=== PATIENT | female | born 1945 | race Caucasian/White ===

== ENCOUNTER 2022-07-28 19:17 | Observation (INO) | payer MEDICARE, OTHER ==
[2022-07-28 20:15] LABS: Basophils % (A) 1 %; Eosinophils # (A) 0.1 k/uL (0-0.7); Eosinophils % (A) 2 %; HCT 39.3 % (34.0-46.0); HGB 14.3 gm/dL (11.4-16.0); Lymphocytes # (A) 1.6 k/uL (1.0-4.8); Lymphocytes % (A) 24 %; MCH 29.9 pg (25.0-35.0); MCHC 36.3 g/dL (31.0-37.0); MCV 82.3 fL (80.0-100.0); Mean Platelet Volume 8.4; Monocytes # (A) 0.4 k/uL (0-1.0); Monocytes % (A) 6 %; Neutrophils # (A) 4.1 k/uL (1.3-7.7); Neutrophils % (A) 65 %; Platelet Count 215 k/uL (150-450); RBC 4.78 m/uL (3.80-5.40); RDW 12.4 % (11.5-15.5); WBC 6.4 k/uL (3.8-10.6)
[2022-07-28 20:26] LABS: INR 0.9 (<1.2); Partial Thromboplastin Time 27.8 sec (22.0-30.0)
[2022-07-28 20:28] LABS: ALT 17 U/L (4-34); AST 20 U/L (14-36); African American GFR (CKD) >90 (>60 ml/min/1.73 sqM); Albumin 4.7 g/dL (3.5-5.0); Alkaline Phosphatase 84 U/L (38-126); Anion Gap 8 mmol/L; Blood Urea Nitrogen 18 mg/dL (7-17); Calcium 10.3 mg/dL (8.4-10.2); Carbon Dioxide 26 mmol/L (22-30); Chloride 104 mmol/L (98-107); Glucose 110 mg/dL (74-99); Magnesium 1.9 mg/dL (1.6-2.3); Non-African American GFR(CKD) 85 (>60 ml/min/1.73 sqM); Sodium 138 mmol/L (137-145); Total Bilirubin 1.2 mg/dL (0.2-1.3); Total Protein 7.3 g/dL (6.3-8.2)
--- NOTE | 2022-07-28 20:29 | XR ---
EXAMINATION TYPE: XR chest 2V DATE OF EXAM: 07/28/2022 8:09 PM COMPARISON: None TECHNIQUE: XR chest 2V Frontal and lateral views of the chest. CLINICAL INDICATION:Female, 76 years old with history of Chest Pain; FINDINGS: Lungs/Pleura: There is no evidence of pleural effusion, focal consolidation, or pneumothorax. Pulmonary vascularity: Unremarkable. Heart/mediastinum: Cardiomediastinal silhouette is unremarkable. Musculoskeletal: No acute osseous pathology. IMPRESSION: No acute cardiopulmonary disease/process.
[2022-07-28] MEDS ORDERED: ASPIRIN 81 MG PO STA (23:35)
[2022-07-28] MEDS ORDERED: NITROGLYCERIN OINT 1 INCH/GM PACKET TOPICAL STA (23:36)
--- NOTE | 2022-07-28 23:41 | ED ---
Chest Pain HPI - General Chief Complaint: Chest Pain Stated Complaint: chest pain Time Seen by Provider: 07/28/22 23:27 Source: patient, RN notes reviewed Mode of arrival: ambulatory Limitations: no limitations - History of Present Illness Initial Comments: This is a pleasant 76-year-old female who presents to emergency department stating that she has had uncontrolled hypertension for the past week or so. Patient then developed chest pain today. Patient is having a hard time describing the pain but states it was in the center of her chest. Patient had been walking up and down stairs prior to the onset of pain. Patient is also had ongoing fatigue. She had a cardiac stress test in [place] over one year ago which was apparently nondiagnostic. No headache, no fever or chills, no changes in vision or hearing, no sore throat or difficulty with speech, no neck pain, no shortness of breath, no abdominal pain, no nausea or vomiting, no changes in urination or bowel movements, no numbness or tingling, no extremity pain, no skin rashes or lesions. Past medical, surgical, social, and family history reviewed. - Related Data Allergies Allergy/AdvReac Type Severity Reaction Status Date / Time No Known Allergies Allergy Verified 07/28/22 19:29 Review of Systems ROS Statement: Those systems with pertinent positive or pertinent negative responses have been documented in the HPI. ROS Other: All systems not noted in ROS Statement are negative. EKG Findings - EKG Comments: EKG Findings:: EKG done at 1951 interpreted by me reveals sinus rhythm with a rate of 74, normal axis, no acute ST or T-wave changes, normal QS morphology, normal intervals. Past Medical History Past Medical History: No Reported History History of Any Multi-Drug Resistant Organisms: None Reported Past Surgical History: Appendectomy, Orthopedic Surgery Additional Past Surgical History / Comment(s): cataracts Past Psychological History: No Psychological Hx Reported Smoking Status: Never smoker Past Alcohol Use History: Occasional Past Drug Use History: None Reported General Exam Limitations: no limitations General appearance: alert, in no apparent distress Head exam: Present: atraumatic, normocephalic, normal inspection Eye exam: Present: normal appearance, PERRL, EOMI. Absent: scleral icterus, conjunctival injection, periorbital swelling ENT exam: Present: normal exam, normal oropharynx, mucous membranes dry, mucous membranes moist, normal external ear exam Neck exam: Present: normal inspection, full ROM. Absent: tenderness, meningismus, lymphadenopathy Respiratory exam: Present: normal lung sounds bilaterally. Absent: respiratory distress, wheezes, rales, rhonchi, stridor Cardiovascular Exam: Present: regular rate, normal rhythm, normal heart sounds. Absent: systolic murmur, diastolic murmur, rubs, gallop, clicks GI/Abdominal exam: Present: soft, normal bowel sounds. Absent: distended, tenderness, guarding, rebound, rigid Extremities exam: Present: normal inspection, full ROM, normal capillary refill. Absent: tenderness, pedal edema, joint swelling, calf tenderness Back exam: Present: normal inspection Neurological exam: Present: alert, oriented X3, CN II-XII intact Psychiatric exam: Present: normal affect, normal mood Skin exam: Present: warm, dry, intact, normal color. Absent: rash, cyanosis, diaphoretic, erythema, urticaria, vesicles, petechiae, pallor, mottled, abrasion Course Vital Signs 07/28/22 19:22 Temperature 96.4 F L Pulse Rate 85 Respiratory 16 Rate Blood Pressure 179/80 O2 Sat by Pulse 98 Oximetry - Reevaluation(s) Reevaluation #1: 07/29/22 00:02 Medical record is reviewed Symptoms are improved here in the emergency department Patient is informed of results and questions answered Patient in no distress - Consultations Consultation #1: Case discussed in detail with the hospitalist physician from [facility]. Patient admitted to that service. Chest Pain MDM - MDM Patient with exertional chest pain. We'll give the patient aspirin, add nitroglycerin paste, patient really no distress at this time. States she has a funny feeling in her chest but the pain has lightened up. We'll admit for further evaluation and treatment. Does not appear to be consistent with pulmonary embolus. Does not appear to be consistent with infectious process. Chest x-ray interpreted by me reveals no evidence of acute pathology. Concur with radiology interpretation. The case was discussed in detail with ED attending physician. Presentation, findings, treatment plan discussed in detail. Senior Air Director Dr. Walker Disposition Clinical Impression: Chest pain, Uncontrolled hypertension, Fatigue, Exertional chest pain Disposition: ADMITTED IP TO THIS [facility] Condition: Fair Referrals: Krzysztof Wesley MD [Primary Care Provider] - 1-2 days Time of Disposition: 23:37
[2022-07-29] MEDS ORDERED: NALOXONE 0.4 MG/ML 1 ML VIAL IV PRN
[2022-07-29] MEDS ORDERED: ACETAMINOPHEN TAB 325 MG TAB PO PRN
--- NOTE | 2022-07-29 04:18 | P.HPIM ---
History of Present Illness H&P Date: 07/29/22 Chief Complaint: chest pain 76 year old female with hypertension patient comes in due to recurrent episodes of chest pain , initially started with moderate physical activity like climbing stairs, she would feel chest pressure across her chest with heavy breathing that goes away with resting. then today she experienced sharp chest pain 4/10 in severity while doing light house chores, was not associated with any SOB, nausea , vomiting, profuse sweating, palpitation , or dizziness. patient does report feeling unusually tired recently with easy fatiguability which she believes unusual for her. she had a stress test done about 1.5 year ago and was unremarkable denies any recent viral illness, denies any URI symptoms, denies any recent travel or hospital stay workup in the ED unremarkable Review of Systems Pertinent positives as noted in HPI. All other systems were reviewed and are negative Past Medical History Past Medical History: No Reported History History of Any Multi-Drug Resistant Organisms: None Reported Past Surgical History: Appendectomy, Orthopedic Surgery Additional Past Surgical History / Comment(s): cataracts Past Psychological History: No Psychological Hx Reported Smoking Status: Never smoker Past Alcohol Use History: Occasional Past Drug Use History: None Reported - Past Family History family Additional Family Medical History / Comment(s): no reported CAD Medications and Allergies Allergies Allergy/AdvReac Type Severity Reaction Status Date / Time No Known Allergies Allergy Verified 07/28/22 19:29 Physical Exam Vitals: Vital Signs Temp Pulse Resp BP Pulse Ox 07/28/22 19:22 96.4 F L 85 16 179/80 98 Intake and Output 07/28/22 07/28/22 07/29/22 14:59 22:59 06:59 Other: Weight 69.4 kg Constitutional: No acute distress, conversant, pleasant Eyes: Anicteric sclerae, moist conjunctiva, Pupils equal round reactive to light ENMT: NC/AT Oropharynx clear, no erythema, or exudates Neck: Supple, no masses, or JVD No carotid bruits No thyromegaly Lungs: Clear to auscultation Clear to percussion Normal respiratory effort, no accessory muscle use Cardiovascular: Heart regular in rate and rhythm, No murmurs, gallops, or rubs No peripheral edema Abdominal: Soft Nontender, no guarding, rebound or rigidity Abdomen moving with respiration Normoactive bowel sounds No hepatomegaly, No splenomegaly No palpable mass No abdominal wall hernia noted Skin: Normal temperature, tone, texture, turgor No induration No subcutaneous nodules No rash, lesions No ulcers Extremities: No digital cyanosis No clubbing Pedal pulses intact and symmetrical Radial pulses intact and symmetrical No calf tenderness Psychiatric: Alert and oriented to person, place and time Appropriate affect fair judgement Neuro Muscles Strength 5/5 in all 4 extremities Sensation to light touch grossly present throughout Cranial nerves II-XII grossly intact No focal sensory deficits Lymphatics: no palpable cervical or supraclavicular lymph nodes Results CBC & Chem 7: 07/28/22 20:00 07/28/22 20:00 Labs: Abnormal Lab Results - Last 24 Hours (Table) 07/28/22 Range/Units 20:00 BUN 18 H (7-17) mg/dL Glucose 110 H (74-99) mg/dL Calcium 10.3 H (8.4-10.2) mg/dL Assessment and Plan Assessment: atypical chest pain rule out ACS EKG no acute changes CXR no acute pathology trops negative X2 quality assurance monitor final monitor vital signs ASA, statin cardiology consult A1c, lipid panel , TSH pain control uncontrolled hypertension initiate on amlodipine 5 mg daily full code heparin sc tid for DVT PPX
[2022-07-29] MEDS: ASPIRIN 81 MG PO SCH (08:32)
[2022-07-29] MEDS ORDERED: amLODIPine 5 MG TAB PO SCH ×2 (09:00→09:01)
[2022-07-29] MEDS ORDERED: HEPARIN SODIUM,PORCINE/PF 5,000 UNIT/0.5 ML SYRINGE SQ SCH (09:00)
[2022-07-29] MEDS ORDERED: ENOXAPARIN 80 MG/0.8 ML SYRINGE SQ STA (09:02)
[2022-07-29 10:20] LABS: Chol/HDL Ratio 4.69 Ratio; LDL Cholesterol,Calculated 112.8 mg/dL (0.0-131.0)
[2022-07-29] MEDS: ATORVASTATIN 20 MG TAB PO SCH (11:31)
[2022-07-29] MEDS: METOPROLOL TARTRATE 12.5 MG TAB PO SCH ×2 (11:31→20:53)
--- NOTE | 2022-07-29 12:10 | CONS ---
CONSULTATION HISTORY OF PRESENT ILLNESS: This is a 76-year-old lady, who sees Dr. Wesley in the outpatient setting in [place]. She has been doing fairly well and does not take any regular prescription medications. She apparently usually has a physical exam in June, but she did not see her doctor as scheduled, and then about a week ago, she went to see her primary care physician and was found to have a systolic pressure of 170 and a diastolic of 90 or so. She also had some nondescript symptoms, which she describes as a constant feeling of pressure on the chest that has lasted almost about a week or so. About a year ago, she had a stress test in [place]. Apparently, that was unremarkable. The discomfort in the chest that she is describing is a constant feeling of pressure that has been there almost for a week. However, yesterday, she had a more of a sharp pain, and she came into the hospital. EKG is unremarkable. Troponins are normal. Her blood pressure is, however, elevated. She is resting comfortably without symptoms. Quality of pain is atypical, but persistent, and she had apparently a negative or a nondiagnostic stress test that was performed about a year ago in [place], details are unavailable. She is asymptomatic, resting comfortably. PAST MEDICAL HISTORY: No evidence of any hypertension or diabetes. She does not take any prescription medications. Recent diagnosis of hypertension about a week ago by PCP. She is status post appendectomy and some orthopedic surgery. SOCIAL HISTORY: The patient is not a smoker. PHYSICAL EXAMINATION: VITAL SIGNS: On examination, blood pressure is 160/70. Pulse rate is about 84 per minute, regular. HEENT: Unremarkable. Fundus was not examined by me. NECK: Supple. No JVD. I do not hear a carotid bruit. HEART: Reveals S1 and S2 heard normally. No significant rub, murmur, or gallop. LUNGS: Clear. ABDOMEN: Soft and nontender. EXTREMITIES: Lower extremities reveal normal pulses. No edema. CENTRAL NERVOUS SYSTEM: Normal. IMAGING STUDIES: EKG revealed sinus mechanism, no acute changes. LABORATORY DATA: Reveal no significant abnormalities. Three sets of troponins are normal. IMPRESSION: 1. Recent diagnosis of elevated blood pressure. 2. Atypical chest pain. 3. Probably an unremarkable stress test a year ago. RECOMMENDATIONS: I am recommending that we will optimize BP control first with addition of a small dose of beta-lex and continue amlodipine 5 mg b.i.d., and we will add Lipitor 20 mg daily. Lipid profile is still pending. We will increase activity. In view of her nondescript symptoms of chest pain, I will also give her Lovenox 70 mg subcutaneously q.12 hours 2 doses. If she has no further chest pain and she is comfortable and ambulatory and BP control has been optimized, we will perform a stress echo tomorrow. However, if she has any symptoms of chest discomfort, I will consider cardiac catheterization. I discussed this with the patient. I explained her the rationale, risks, benefits and options. Based on clinical course, we will make further recommendation, but first, we will optimize BP control. Thank you very much for the consult. JACK / THERESA: [id number] /
--- NOTE | 2022-07-29 17:59 | P.PN ---
Subjective Progress Note Date: 07/29/22 Hospital course: Patient is a very pleasant 76-year-old female with no reported past medical history. She presents to the emergency department with a chief complaint of chest pain. She reports that she's had mild chest pressure off and on over the past week and has noticed that she has had elevated blood pressures. She denies having a history of hypertension and states that she follows with her primary care doctor every year and also follows her blood pressure at home. Patient states this chest pain was different and was described as more of a painful sensation that her pressure and upon taking her blood pressure she noted it to b e very high. Upon arrival to the emergency department patient underwent full evaluation. Upon initial evaluation she was found to be hypertensive with blood pressure 179/80 heart rate of 85. CBC, coags, and CMP were unremarkable. Patient had mild hypercalcemia with calcium of 10.3. Troponin was negative at less than 0.012. EKG showing sinus rhythm at 74 bpm with no noted T-wave or ST abnormalities showing no signs of acute ischemia. Chest x-ray negative for acute cardiopulmonary process. Patient was admitted under services with consultation to cardiology. Troponins were trended all negative at less than 0.0123 draws. Lipid profile unremarkable with the exception of low HDL of 38.2 0. Physical exam: Patient seen and fully evaluated at bedside this morning. Currently patient reports complete resolution of previously reported chest pain/discomfort. She has been started on amlodipine 5 mg twice daily as well as metoprolol 12.5 mg twice daily. Blood pressures much improved this morning with blood pressure 128/78 and heart rate of 66. Vital signs reviewed and stable. General: Nontoxic, no distress and appears stated age. Derm: Skin warm and dry, normal coloration for ethnicity. Head: Atraumatic, normocephalic and symmetric. Eyes: EOMs intact, no lid lag, and anicteric sclera Mouth: no lip lesions, mucus membranes moist Cardiovascular: regular rate and rhythm with normal S1S2, no murmur, positive po sterior tibial pulses bilaterally, and cap refill < 2 seconds. Lungs: Respirations even, regular, and unlabored on room air. Lungs CTA bilaterally, no rhonchi, no rales, no wheezing, and no accessory muscle usage. Abdominal: soft, nontender to palpation, no guarding, no appreciable organomegaly Ext: ROM intact. No gross muscle atrophy, no edema, no contractures Neuro: Speech clear, face symmetrical and CN II-XII grossly intact with no noted focal neuro deficits Psych: Alert and oriented to person, place, time, and situation. Appropriate and pleasant affect. Assessment and Plan of Care: Uncontrolled hypertension Chest pain, rule out acute coronary event -Cardiology following, planning to take patient for stress test tomorrow morning -Telemetry monitoring -Troponins negative -Cardiac diet -Aspirin, atorvastatin, and metoprolol -Lipid profile with a.m. labs. -Echocardiogram CODE STATUS: Full code DVT prophylaxis: Lovenox Discussed with: Patient, patient's sons at bedside and patient's Anticipated discharge date: 1-[address]: Home A total of 35 minutes was spent on the care of this complex patient more than 50% of the time was spent in counseling and care coordination. I reviewed the documentation as provided by the YUKO above, who is the original author of this note. I agree with the documented assessment and plan, with the following changes: none Objective - Vital Signs Vital signs: Vital Signs Temp 96.4 F L 07/28/22 19:22 Pulse 69 07/29/22 00:47 Resp 16 07/29/22 00:47 BP 165/91 07/29/22 00:47 Pulse Ox 97 07/29/22 00:47 FiO2 Intake & Output 07/28/22 07/29/22 07/29/22 18:59 06:59 18:59 Weight 69.4 kg - Labs CBC & Chem 7: 07/30/22 04:40 07/30/22 04:40 Labs: Abnormal Lab Results - Last 24 Hours (Table) 07/28/22 Range/Units 20:00 BUN 18 H (7-17) mg/dL Glucose 110 H (74-99) mg/dL Calcium 10.3 H (8.4-10.2) mg/dL
[2022-07-29] MEDS: amLODIPine 5 MG TAB PO SCH (20:53)
[2022-07-30 08:27] VITALS: BP 120/72; PULSE 71; RESP 16; TEMP 98
[2022-07-30] MEDS ORDERED: ENOXAPARIN 40 MG/0.4 ML SYRINGE SQ SCH (09:00)
--- NOTE | 2022-07-30 09:03 | CA ---
Transthoracic Echo Report Name: Briana Beasley Age: 76 Gender: F : 1945 Exam Date: 07/29/2022 13:36 Exam Location: [facility] Ht (in): 64 Wt (lb): 153 Ordering Physician: Ashley Crawley Attending/Referring Phys: Document Imaging Specialist Evy Escobar RDCS Procedure CPT: Indications: Chest Pain Cardiac Hx: Technical Quality: Good Contrast 1: Total Dose (mL): Contrast 2: Total Dose (mL): MEASUREMENTS (Male / Female) Normal Values 2D ECHO LV Diastolic Diameter PLAX 4.3 cm 4.2 - 5.9 / 3.9 - 5.3 cm LV Systolic Diameter PLAX 2.8 cm IVS Diastolic Thickness 1.0 cm 0.6 - 1.0 / 0.6 - 0.9 cm LVPW Diastolic Thickness 1.0 cm 0.6 - 1.0 / 0.6 - 0.9 cm LV Relative Wall Thickness 0.5 RV Internal Dim ED PLAX 3.0 cm LA Systolic Diameter LX 3.3 cm 3.0 - 4.0 / 2.7 - 3.8 cm LA Volume 48.8 cm??? 18 - 58 / 22 - 52 cm??? M-MODE Aortic Root Diameter MM 3.0 cm MV E Point Septal Separation 0.5 cm AV Cusp Separation MM 1.8 cm DOPPLER AV Peak Velocity 176.2 cm/s AV Peak Gradient 12.4 mmHg MV Area PHT 3.0 cm??? Mitral E Point Velocity 83.3 cm/s Mitral A Point Velocity 113.2 cm/s Mitral E to A Ratio 0.7 MV Deceleration Time 252.6 ms MV E' Velocity 7.9 cm/s Mitral E to MV E' Ratio 10.6 TR Peak Velocity 246.1 cm/s TR Peak Gradient 24.2 mmHg Right Ventricular Systolic Press 28.4 mmHg FINDINGS Left Ventricle Left ventricular ejection fraction is estimated at 55-60 %. Left ventricular cavity size normal. Left ventricular wall thickness normal. Right Ventricle Normal right ventricular size. Mild pulmonary hypertension. Right Atrium Normal right atrial size. Left Atrium Normal left atrial size. No evidence for an atrial septal defect. Mitral Valve Structurally normal mitral valve. No mitral stenosis, regurgitation or prolapse. Aortic Valve Trileaflet aortic valve. No aortic valve stenosis or regurgitation. Tricuspid Valve Structurally normal tricuspid valve. Mild tricuspid regurgitation. Pulmonic Valve Trace pulmonic regurgitation. Pericardium Normal pericardium. No pericardial effusion. Aorta Normal size aortic root and proximal ascending aorta. CONCLUSIONS Normal LV size and systolic function. No significant abnormality in the Doppler exam. No pericardial effusion Previewed by: Dr. Mei Mensah MD (Electronically Signed) Final Date: 30 July 2022 09:02
[2022-07-30 09:25] LABS: Basophils # (A) 0.07 X 10*3/uL (0.00-0.10); Basophils % (A) 1.2 %; Eosinophils # (A) 0.14 X 10*3/uL (0.04-0.35); Eosinophils % (A) 2.4 %; HCT 39.2 % (37.2-46.3); HGB 13.1 g/dL (12.0-15.0); Immature Grans, Automated 0.5 %; Lymphocytes # (A) 1.46 X 10*3/uL (0.90-5.00); Lymphocytes % (A) 25.2 %; MCH 28.8 pg (27.0-32.0); MCHC 33.4 g/dL (32.0-37.0); MCV 86.2 fL (80.0-97.0); Monocytes # (A) 0.52 X 10*3/uL (0.20-1.00); NRBC Per 100 WBC 0 /100 WBCS (0.0-0.0); Neutrophils # (A) 3.58 X 10*3/uL (1.80-7.70); Neutrophils % (A) 61.7 %; Platelet Count 226 X 10*3/uL (140-440); RBC 4.55 X 10*6/uL (4.10-5.20); RDW 12.2 % (11.5-14.5)
--- NOTE | 2022-07-30 09:40 | P.PN ---
Subjective This is a 76-year-old female with past medical history of family history of coronary artery disease. She does not follow with a stockholder. Patient presented emergency department with complaints of chest pain. She initially went to her primary care provider and her blood pressure was elevated with SBP in the 170s. She was not started on blood pressure medications at that time. She states that she did wear a heart monitor for about one week. She described her chest pain as chest heaviness, nonradiating, nonexertional. She states it is intermittent and would come and go. She is a nonsmoker. Denies any prior history of CAD, VA, stroke, diabetes, dyslipidemia, hypertension. She does have a significant family history of CAD, mother had VA late 70s, brother VA at age 60 , grandmother had an VA. Her BP was elevated on admission, Acute coronary syndrome was ruled out. BP was managed. 07/30/2022 Patient seen and examined at bedside, no acute distress. She denies any further chest pain. She denies shortness of breath. Acute coronary syndrome has ruled out. Plan for a stress echocardiogram today. Blood pressure improved 120/72, heart rate 71, afebrile, saturations 98% on room air Echocardiogram revealed an EF of 5560%, no significant valvular wall motion abnormality. No pericardial effusion. GENERAL: Well-appearing, well-nourished and in no acute distress. NECK: Supple without JVD LUNGS: Breath sounds clear to auscultation bilaterally. Respiration equal and unlabored. No wheezes, rales or rhonchi. HEART: Regular rate and rhythm without murmurs, rubs or gallops. S1 and S2 heard. EXTREMITIES: Normal range of motion, no edema. No clubbing or cyanosis. Peripheral pulses intact. ASSESSMENT Chest pain, acute coronary syndrome has ruled out Hypertension Family history of coronary disease PLAN Plan for stress echocardiogram test today. If stress test with no stress induced ischemia, no further inpatient workup from cardiology perspective. Continue amlodipine 5 mg twice a day, statin, metoprolol tartrate. Hold AM dose of metoprolol for stress test Follow up outpatient with her PCP and Dr. Mensah in 2-3 weeks Nurse Practitioner note has been reviewed, I agree with a documented findings and plan of care. Patient was seen and examined. Objective - Vital Signs Vital signs: Vital Signs Temp 98.0 F 07/30/22 07:00 Pulse 71 07/30/22 07:00 Resp 16 07/30/22 07:00 BP 120/72 07/30/22 07:00 Pulse Ox 98 07/30/22 07:00 FiO2 Intake & Output 07/29/22 07/30/22 07/30/22 18:59 06:59 18:59 Weight 69.4 kg Other: # Voids 2 2 - Labs CBC & Chem 7: 07/30/22 04:40 07/28/22 20:00 Labs: Abnormal Lab Results - Last 24 Hours (Table) 07/29/22 Range/Units 06:21 HDL Cholesterol 38.20 L (40.00-60.00) mg/dL
[2022-07-30 09:54] LABS: African American GFR (CKD) 82.4 (60.0-200.0); Anion Gap 9.4 mmol/L (10.00-18.00); BUN/Creat Ratio 20.63 Ratio (12.00-20.00); Blood Urea Nitrogen 16.5 mg/dL (9.0-27.0); Calcium 10.5 mg/dL (8.7-10.3); Carbon Dioxide 27.6 mmol/L (20.0-27.5); Non-African American GFR(CKD) 71.1 (60.0-200.0); Potassium 4.6 mmol/L (3.5-5.5)
--- NOTE | 2022-07-30 11:02 | CA ---
Stress Echo Report Briana Beasley Age: 76 Gender: F : 1945 Exam Date: 07/30/2022 10:11 Exam Location: [place] [facility] Ht (in): 64 Wt (lb): 153 Ordering Physician: Ashley Crawley Referring Physician: ZACHARY,, Line Repairer: Trevor Herrera Technologist Procedure CPT: Indication: Chest Pain ICD-9 Codes: Rhythm: Patient History: Cardiac Medications: Medications in past 24 hours: Contrast: Stress Results Protocol: Jonathon Total dose(mL): Exercise Duration (min:sec): 3:[address] Depression (mm): Angina Score: Cho Score: METS: 5.2 Resting HR: 75 Resting BP: 143 / 81 Peak HR: 139 Peak BP: 195 / 86 Max Predicted HR: 143 97 % Max Predicted HR Target HR: 122 Double Product: 68027 Stress Summary: BP Response: Reason for Termination: Reached target heart rate or work-load Cardiac Symptoms: SHORT OF BREATH ECG Analysis Resting ECG: Stress ECG: Arrhythmia: Echo Analysis Resting Echo: Peak Echo Analysis: MEASUREMENTS (Male/Female) Normal Values CONCLUSIONS Baseline EKG revealed normal sinus rhythm without significant ST-T changes. Patient walked on a standard Jonathon protocol for 3 minutes 32 seconds and achieved a maximum heart rate of about 136-1 40 bpm. This is available 85% of predicted maximal. Peak blood pressure was 194/86. Patient did not have any angina but she developed shortness of breath. There was no evidence of any significant arrhythmia. This is a negative stress test by EKG criteria with somewhat limited exercise capacity Baseline echo images revealed normal wall motion wall thickening of all segments. At peak exercise there was good augmentation of left ventricular wall motion wall thickening of all segments suggesting that there is no evidence of any stress-induced ischemia on the stress echocardiogram Limited x-rays capacity is a negative stress has been EKG criteria and normal stress echocardiogram without evidence of ischemia Dr. Mei Mensah MD (Electronically Signed) Final Date: 30 July 2022 11:01
[2022-07-30] MEDS: ATORVASTATIN 20 MG TAB PO SCH (11:26)
[2022-07-30] MEDS: ASPIRIN 81 MG PO SCH (11:26)
[2022-07-30] MEDS: amLODIPine 5 MG TAB PO SCH (11:26)
[2022-07-30] MEDS: METOPROLOL TARTRATE 12.5 MG TAB PO SCH (11:26)
--- NOTE | 2022-07-30 12:40 | P.DS ---
Providers Date of admission: 07/29/22 00:02 Expected date of discharge: 07/30/22 Attending physician: Silvia Davis MD Consults: 07/29/22 00:00 Consult Physician Urgent Consulting Provider: Lisandra Macdonald Consult Reason/Comments: chest pain Do you want consulting provider notified?: Yes, Notify in am Primary care physician: Krzysztof Castro [facility] Course: Discharge Diagnosis: Uncontrolled hypertension, patient started on amlodipine 5 mg twice daily and metoprolol 12.5 mg twice daily resulting in optimization of blood pressures with blood pressure 120/72 and heart rate 71 upon discharge. Patient instructed to continue to monitor blood pressures at home and document these findings and a daily log/journal to bring with her to the next doctor's appointment so additional adjustments can be made if needed to current antihypertensive medication regimen. Chest pain, acute coronary event ruled out Hospital Course: Patient is a very pleasant 76-year-old female with no reported past medical history. She presents to the emergency department with a chief complaint of chest pain. She reports that she's had mild chest pressure off and on over the past week and has noticed that she has had elevated blood pressures. She denies having a history of hypertension and states that she follows with her primary care doctor every year and also follows her blood pressure at home. Patient states this chest pain was different and was described as more of a painful sensation that her pressure and upon taking her blood pressure she noted it to be very high. Upon arrival to the emergency department patient underwent full evaluation. Upon initial evaluation she was found to be hypertensive with blood pressure 179/80 heart rate of 85. CBC, coags, and CMP were unremarkable. Patient had mild hypercalcemia with calcium of 10.3. Troponin was negative at less than 0.012. EKG showing sinus rhythm at 74 bpm with no noted T-wave or ST abnormalities showing no signs of acute ischemia. Chest x-ray negative for acute cardiopulmonary process. Patient was admitted under services with consultation to cardiology. Troponins were trended all negative at less than 0.0123 draws. Lipid profile unremarkable with the exception of low HDL of 38.20. Patient was started on antihypertensive medication amlodipine and metoprolol in addition to a low-dose atorvastatin. She was evaluated by cardiology and underwent an echocardiogram which revealed EF of 50-5-60% and mild tricuspid regurgitation with no other reported valvular structural abnormalities. Patient then underwent a stress echo showing no evidence of any stress-induced ischemia. Cardiology recommending outpatient follow-up in their office in 3 weeks. Hypertension controlled with current blood pressure 120/72, heart rate 71, and respiratory rate 16 with SpO2 of 98% on room air. Patient is medically stable at this time and free from any chest pain or complaints. Physical exam: Vital signs reviewed and stable. General: Nontoxic, no distress and appears stated age. Derm: Skin warm and dry, normal coloration for ethnicity. Head: Atraumatic, normocephalic and symmetric. Eyes: EOMs intact, no lid lag, and anicteric sclera Mouth: no lip lesions, mucus membranes moist Cardiovascular: regular rate and rhythm with normal S1S2, no murmur, positive posterior tibial pulses bilaterally, and cap refill < 2 seconds. Lungs: Respirations even, regular, and unlabored on room air. Lungs CTA bilaterally, no rhonchi, no rales, no wheezing, and no accessory muscle usage. Abdominal: soft, nontender to palpation, no guarding, no appreciable organomegaly Ext: ROM intact. No gross muscle atrophy, no edema, no contractures Neuro: Speech clear, face symmetrical and CN II-XII grossly intact with no noted focal neuro deficits Psych: Alert and oriented to person, place, time, and situation. Appropriate and pleasant affect. A total of 32 minutes of time were spent preparing this complex discharge summary. Pt was discharged on 07/30/22 at 12:36 PM. I reviewed the documentation as provided by the YUKO above, who is the original author of this note. I agree with the documented assessment and plan, with the following changes: none Patient Condition at Discharge: Stable Plan - Discharge Summary Discharge Rx Participant: Yes New Discharge Prescriptions: New Atorvastatin [Lipitor] 20 mg PO DAILY #90 tab amLODIPine [Norvasc] 5 mg PO BID #60 tab Metoprolol Tartrate [Lopressor] 12.5 mg PO BID #60 tab Discharge Medication List Atorvastatin [Lipitor] 20 mg PO DAILY #90 tab 07/30/22 [Rx] Metoprolol Tartrate [Lopressor] 12.5 mg PO BID #60 tab 07/30/22 [Rx] amLODIPine [Norvasc] 5 mg PO BID #60 tab 07/30/22 [Rx] Follow up Appointment(s)/Referral(s): Mei Mensah MD [STAFF PHYSICIAN] - 3 Weeks Krzysztof Wesley MD [Primary Care Provider] - 1-2 days Patient Instructions/Handouts: Angina (DC), Hypertension (DC) Activity/Diet/Wound Care/Special Instructions: Activity: As tolerated. Take breaks as needed. Diet: Heart healthy and carb consistent diet. Avoid salts, or foods with hidden salts such as canned or boxed foods and frozen dinners. Extra salt makes your heart work harder and traps the fluid in your body for longer. Special Instructions: Take all of your medications as directed and remember to keep all of your doctor's appointments and follow-up as needed. ABSOLUTELY NO MORE LAUNDRY!!!! Your son (Omar) and grandson (Jordan) MUST be informed that they are now responsible to do ALL of your laundry!!!!! Have a safe trip back to [place], and enjoy that weather!!! Thank you for allowing us to participate in your care, it was truly a pleasure having you for our patient!!! Discharge Disposition: HOME SELF-CARE
== END 2022-07-30 13:22 | disposition home or self-care (01) ==
LOC: EC 19:17 → 6NMEDSUR 07-29 00:02
PROVIDERS: ADMIT Internal Medicine; ATTEND Internal Medicine
DX: R07.89 Other chest pain (principal); E83.52 Hypercalcemia; I27.20 Pulmonary hypertension, unspecified; I07.1 Rheumatic tricuspid insufficiency; I37.1 Nonrheumatic pulmonary valve insufficiency; Z98.42 Cataract extraction status, left eye; Z98.41 Cataract extraction status, right eye; Z82.49 Family history of ischemic heart disease and other diseases of the circulatory system
CPT/HCPCS: 96372; 99285; 36415; 93005; 93306; 93351; 83880; 80061; 80053; 80048; 84443; 83735; 84484 ×2; 85025 ×2; 85610; 85730; 83036; 71046; G0378 ×2; J1644